=== PATIENT | female | born 1995 | race Caucasian/White ===

== ENCOUNTER 2018-07-14 19:30 | Emergency (ER) | payer MEDICAID ==
[~2018-07-14] VITALS: Ht 165.1 cm; Wt 80.3 kg
[2018-07-14 19:37] VITALS: Ht 165.1 cm; Wt 80.3 kg
[2018-07-14 21:17] LABS: BASOPHIL % 0.6 % (0-2); PLATELET COUNT 275 x10^3mcL (130-400); RED CELL DISTRIBUTION WIDTH 12.2 % (11.5-14.5)
[2018-07-14 21:28] LABS: CALCIUM 8.8 mg/dL (8.5-10.1); CARBON DIOXIDE 25.2 mmol/L (21-32); CHLORIDE SERUM 103 mmol/L (98-107); CREATININE SERUM 0.7 mg/dL (0.6-1.0); GFR1 > 60 mL/min; GLUCOSE SERUM 85 mg/dL (74-106); POTASSIUM SERUM 3.7 mmol/L (3.5-5.1); SODIUM SERUM 135 mmol/L (136-145)
[2018-07-14 21:33] LABS: ALBUMIN 3.8 g/dL (3.4-5.0); ALKALINE PHOSPHATASE 48 U/L (46-116); ALT/SGPT 29 U/L (14-59); AST/SGOT 15 U/L (15-37); BILIRUBIN TOTAL 0.7 mg/dL (0.20-1.00); LIPASE 111 IU/L (73-393); TOTAL PROTEIN, SERUM 7.7 g/dL (6.4-8.2)
[2018-07-14 21:35] LABS: AMPHETAMINE QUAL UR NONE DETECTED (See below)
[2018-07-14 22:26] VITALS: BP 131/83
== END 2018-07-14 22:26 | disposition home or self-care (01) ==
LOC: ED 19:30
PROVIDERS: Emergency Medicine
DX: R11.10 Vomiting, unspecified (principal); R30.0 Dysuria; R63.0 Anorexia; R50.9 Fever, unspecified; Z90.89 Acquired absence of other organs; Z88.1 Allergy status to other antibiotic agents
CPT/HCPCS: 36415